=== PATIENT | female | born 1960 | race Caucasian/White ===

== ENCOUNTER 2018-12-07 08:33 | Observation (INO) ==
[2018-12-07] MEDS ORDERED: Aspirin 81 MG TAB.CHEW PO ONE (08:50)
--- NOTE | 2018-12-07 09:22 | Emergency Department Note ---
Disposition Clinical Impression: AMENA (acute kidney injury), Dehydration, Elevated troponin, Elevated d-dimer Disposition: Admitted As Inpatient Condition: Fair Time of Disposition: 12:30 General Adult HPI - General Chief complaint: ED Shortness of Breath/Dyspnea Stated complaint: N/V/D JENNIFFER Time Seen by Provider: 12/07/18 08:41 Source: patient Limitations: no limitations Nursing Notes Reviewed: Yes Vital Signs Reviewed: Yes - History of Present Illness Pain Scale: 0 - Related Data Home Medications Medication Instructions Recorded Confirmed Atorvastatin [Lipitor] 0 mg PO HS 12/07/18 12/07/18 Carvedilol [Coreg] 6.25 mg PO BIDWM 12/07/18 12/07/18 Furosemide [Lasix] 20 mg PO DAILY 12/07/18 12/07/18 NIFEdipine XL (24 HR) [Procardia 60 mg PO DAILY 12/07/18 12/07/18 XL] Potassium Chloride [K-Tab ER] 20 meq PO DAILY 12/07/18 12/07/18 Quinapril HCl [Accupril] 20 mg PO BID 12/07/18 12/07/18 Zolpidem [Ambien] 10 mg PO HS 12/07/18 12/07/18 Allergies Allergy/AdvReac Type Severity Reaction Status Date / Time Penicillins Allergy "do not Verified 12/07/18 08:40 remember, when I was a kid" Sulfa (Sulfonamide Allergy Hives Verified 12/07/18 08:40 Antibiotics) adhesive tape AdvReac "takes my Verified 12/07/18 08:40 skin off" Past Medical History - Past Medical History Medical history: Reports: CHF, hypertension, kidney stones Psychiatric history: Reports: no psych history - Social History Smoking Status: Former smoker Smokeless Tobacco Status: No Alcohol use: Reports: none Drug use: Reports: none Physical Exam - General Limitations: no limitations General appearance: alert, in no apparent distress Course Vital Signs Temperature 97.7 F 12/07/18 08:37 Pulse Rate 73 12/07/18 08:37 Respiratory Rate 20 12/07/18 08:37 Blood Pressure 174/69 12/07/18 08:37 O2 Sat by Pulse Oximetry 98 12/07/18 08:37 Temperature 98.2 F 12/07/18 12:43 Pulse Rate 60 12/07/18 12:43 Respiratory Rate 18 12/07/18 12:43 Blood Pressure 116/56 12/07/18 12:43 O2 Sat by Pulse Oximetry 94 12/07/18 12:43 Oxygen Delivery Oxygen Delivery Room Air Medical Decision Making - MDM Narrative Medical decision making narrative: Chest X-Ray 12/07/18 08:51 IMPRESSION: 1. Mildly enlarged cardiac silhouette. 2. Otherwise, no convincing acute cardiopulmonary abnormality. D/ / Franky Mckeon MD / Franky Mckeon MD Interpreting Provider: Franky Mckeon MD 0922 hrs.: No signs of acute failure on CXR but that she does have an enlarged heart. 1000 hrs.: Patient does have an AMENA, this is probably from her dehydration from her nausea vomiting and diarrheal illness. Her troponins also elevated she has any chest pain but that may be one of the reasons that this is occurred also. We will bring her in the hospital fluid hydrate her follow her troponin in her creatinine and then determine further disposition when she is in the hospital. She is in agreement with plan. - Lab Data Result diagrams: 12/07/18 09:08 12/07/18 09:08 Lab Results 12/07/18 12/07/18 12/07/18 Range/Units 09:08 09:08 09:08 WBC 7.6 (4.3-11.1) K/mcL RBC 3.68 L (3.82-4.97) M/mcL Hgb 10.2 L (11.5-15.4) g/dL Hct 32.5 L (35.3-44.9) % MCV 88.3 (83.0-100.0) fL MCH 27.7 L (28.0-33.3) pg MCHC 31.4 L (31.6-35.5) g/dL RDW 14.5 (11.5-14.5) % Plt Count 265 (140-400) K/mcL MPV 9.3 L (9.4-12.4) fL Immature Gran % 1.2 (0-4) % Seg Neutrophils % 83.8 % Lymphocytes % 7.9 % Monocytes % 6.5 % Eosinophils % 0.3 % Basophils % 0.3 % Neutrophils # 6.4 (1.6-8.9) K/mcL Lymphocytes # 0.6 (0.6-4.6) K/mcL Monocytes # 0.5 (0.0-1.3) K/mcL Eosinophils # 0.0 (0.0-0.6) K/mcL Basophils # 0.0 (0.0-0.2) K/mcL D-Dimer 1239 H (0-500) ng/mLFEU Sodium 137 (136-145) mEq/L Potassium 3.6 (3.5-5.1) mEq/L Chloride 103 (98-107) mEq/L Carbon Dioxide 24 (23-29) mEq/L BUN 21 H (6-20) mg/dL Creatinine 1.44 H (0.60-1.20) mg/dL Est GFR ( Amer) 45 L (> 60) Est GFR (Non-Af Amer) 37 L (> 60) BUN/Creatinine Ratio 15 (6-26) Glucose 130 H (70-105) mg/dL Calculated Osmolality 289 (280-300) Calcium 8.3 L (8.6-10.3) mg/dL Troponin I 0.04 H* (< 0.04) ng/mL B-Natriuretic Peptide (Less than 100) pg/mL 12/07/18 Range/Units 09:08 WBC (4.3-11.1) K/mcL RBC (3.82-4.97) M/mcL Hgb (11.5-15.4) g/dL Hct (35.3-44.9) % MCV (83.0-100.0) fL MCH (28.0-33.3) pg MCHC (31.6-35.5) g/dL RDW (11.5-14.5) % Plt Count (140-400) K/mcL MPV (9.4-12.4) fL Immature Gran % (0-4) % Seg Neutrophils % % Lymphocytes % % Monocytes % % Eosinophils % % Basophils % % Neutrophils # (1.6-8.9) K/mcL Lymphocytes # (0.6-4.6) K/mcL Monocytes # (0.0-1.3) K/mcL Eosinophils # (0.0-0.6) K/mcL Basophils # (0.0-0.2) K/mcL D-Dimer (0-500) ng/mLFEU Sodium (136-145) mEq/L Potassium (3.5-5.1) mEq/L Chloride (98-107) mEq/L Carbon Dioxide (23-29) mEq/L BUN (6-20) mg/dL Creatinine (0.60-1.20) mg/dL Est GFR ( Amer) (> 60) Est GFR (Non-Af Amer) (> 60) BUN/Creatinine Ratio (6-26) Glucose (70-105) mg/dL Calculated Osmolality (280-300) Calcium (8.6-10.3) mg/dL Troponin I (< 0.04) ng/mL B-Natriuretic Peptide 330 H (Less than 100) pg/mL Attestation Statement - Attestation Attestation: This documentation is done with the assistance of Dragon dictation. Despite efforts made to ensure accuracy, there may be inaccuracies in pathology secretary/transcriptionist or spelling and typographical errors. I examined this patient and my medical decision-making was reviewed with the Resident Physician. I agree with the documented findings, disposition and treatment plan as described except to the extent set forth below. Patient was seen and evaluated by Dr. Damon, I agree with their evaluation and management plan, I supervised care the patient's stay. Patient presents today with a few days of nausea vomiting diarrhea which is now resolved. She says she is dyspneic when she gets up to move about. She says she rebound Lasix before but is not right now. She is on any chest pain shortness abdominal pain. She feels better when she sitting at rest. She says she has billable diaphoretic. And feels very warm. We will order a workup on her picture she is not in CHF and reassess. She is in agreement with plan. I reviewed the residents documentation and agree with the residents assessment and plan of care. I have personally had face to face time with the patient. (Brief History, Brief Exam, and MDM) I personally supervised and was present for the mcintosh/critical portions of the following procedures completed by the resident: EKG was interpreted by the resident under my supervision, I agree with their interpretation.
[2018-12-07 09:27] LABS: Basophils % 0.3 %; Eosinophils % 0.3 %; Hematocrit 32.5 % (35.3-44.9); Hemoglobin 10.2 g/dL (11.5-15.4); Immature Granulocytes % 1.2 % (0-4); Lymphocytes # 0.6 K/mcL (0.6-4.6); Lymphocytes % 7.9 %; Mean Corpuscular HGB Conc 31.4 g/dL (31.6-35.5); Mean Corpuscular Hemoglobin 27.7 pg (28.0-33.3); Mean Corpuscular Volume 88.3 fL (83.0-100.0); Mean Platelet Volume 9.3 fL (9.4-12.4); Monocytes # 0.5 K/mcL (0.0-1.3); Monocytes % 6.5 %; Neutrophils # 6.4 K/mcL (1.6-8.9); Platelet Count 265 K/mcL (140-400); Red Blood Count 3.68 M/mcL (3.82-4.97); Red Cell Distribution Width 14.5 % (11.5-14.5); Segmented Neutrophils % 83.8 %; White Blood Count 7.6 K/mcL (4.3-11.1)
[2018-12-07] MEDS ORDERED: 0.9 % Sodium Chloride 500 ML IVC ONE (09:38)
--- NOTE | 2018-12-07 09:41 | Emergency Department Note ---
Disposition Clinical Impression: AMENA (acute kidney injury), Dehydration, Elevated troponin, Elevated d-dimer Disposition: Admitted As Inpatient Condition: Fair Referrals: Eric Samaniego DO [Primary Care Provider] - Forms: ED Satisfaction Letter Time of Disposition: 11:17 SOB HPI - General Chief Complaint: ED Shortness of Breath/Dyspnea Stated Complaint: N/V/D JENNIFFER Time Seen by Provider: 12/07/18 08:41 Source: patient Limitations: no limitations Nursing Notes Reviewed: Yes Vital Signs Reviewed: Yes - History of Present Illness 58-year-old female presents to the emergency department complaining of difficulty in breathing. Patient does have history of CHF. Said that she has been sick over the last 3-4 days were she has been nauseous and vomiting and also having diarrhea she is here primary care physician who gave her Zofran said she is no longer having nausea vomiting or diarrhea just feels very short of breath. Went to work today and said she was unable to take 4-5 steps without stopping to catch her breath. No history of COPD. Does have history of ROSELYN does use BiPAP at home only at night. Does not have history of emphysema. She said she stopped smoking approximately 20 years ago and did about a quarter pack a day. For only 5 years. She is not complaining of any chest pain. She says she had a hard time catching her breath. Says she has also noticed sweating as well. There is no fevers chills. She does not notice any cough or congestion. She does not believe she is in heart failure at this time. She takes Lasix as needed for swelling says she has normal leg swelling at this time. There is been no long car rides no recent hormone use no history of blood clots no recent cancer history no recent surgery history. - Related Data Home Medications Medication Instructions Recorded Confirmed Atorvastatin [Lipitor] 0 mg PO HS 12/07/18 12/07/18 Carvedilol [Coreg] 6.25 mg PO BIDWM 12/07/18 12/07/18 Furosemide [Lasix] 20 mg PO DAILY 12/07/18 12/07/18 NIFEdipine XL (24 HR) [Procardia 60 mg PO DAILY 12/07/18 12/07/18 XL] Potassium Chloride [K-Tab ER] 20 meq PO DAILY 12/07/18 12/07/18 Quinapril HCl [Accupril] 20 mg PO BID 12/07/18 12/07/18 Zolpidem [Ambien] 10 mg PO HS 12/07/18 12/07/18 Allergies Allergy/AdvReac Type Severity Reaction Status Date / Time Penicillins Allergy "do not Verified 12/07/18 08:40 remember, when I was a kid" Sulfa (Sulfonamide Allergy Hives Verified 12/07/18 08:40 Antibiotics) adhesive tape AdvReac "takes my Verified 12/07/18 08:40 skin off" All systems ED: reviewed and negative except as stated. Review of Systems: As Per HPI Past Medical History - Past Medical History Attestation: Yes The following information was validated with the patient. Source: patient Medical history: Reports: CHF, hypertension, kidney stones Psychiatric history: Reports: no psych history - Social History Smoking Status: Former smoker Smokeless Tobacco Status: No Alcohol use: Reports: none Drug use: Reports: none Physical Exam - General Limitations: no limitations General appearance: alert, in no apparent distress - Head Head exam: atraumatic, normocephalic, normal inspection - Eye Eye exam: Present: normal appearance, PERRL, EOMI - ENT ENT exam: normal exam, normal oropharynx, mucous membranes moist - Neck Neck exam: Present: normal inspection, full ROM, trachea midline - Chest Chest inspection: Present: normal inspection, symmetric chest wall rise - Respiratory Respiratory exam: Present: normal lung sounds bilaterally. Absent: respiratory distress, wheezes, stridor, accessory muscle use - Cardiovascular Cardiovascular exam: Present: regular rate, normal rhythm, normal heart sounds - Abdominal Exam Abdominal exam: Present: soft, Non-Tender, normal bowel sounds. Absent: tenderness, distention, guarding, rebound, rigidity - Extremities Exam Extremities exam: Present: normal inspection, full ROM, pedal edema (1+ bilaterally). Absent: tenderness - Back Exam Back exam: Present: normal inspection, full ROM. Absent: tenderness, CVA tenderness (R), CVA tenderness (L) - Neurological Exam Neurological exam: Present: alert, oriented X3 - Skin Skin exam: Present: warm, dry, intact, normal color Course Course Narrative: We have basic labs including CBC BMP BNP, troponin, d-dimer as well as chest x- ray and EKG per we will give patient IV fluids was the chest x-ray comes back not showing fluid overload. We will start with 500 mL as patient does seem to be dehydrated on exam. Vital Signs Temperature 97.7 F 12/07/18 08:37 Pulse Rate 73 12/07/18 08:37 Respiratory Rate 20 12/07/18 08:37 Blood Pressure 174/69 12/07/18 08:37 O2 Sat by Pulse Oximetry 98 12/07/18 08:37 Temperature 97.7 F 12/07/18 08:37 Pulse Rate 59 12/07/18 10:21 Respiratory Rate 24 12/07/18 10:21 Blood Pressure 117/69 12/07/18 10:21 O2 Sat by Pulse Oximetry 94 12/07/18 09:56 Oxygen Delivery Oxygen Delivery Room Air Shortness of Breath/Dyspnea - MDM Narrative Medical decision making narrative: 50-year-old female presented to the emergency department shortness of breath. She was diaphoretic on exam. It was worry about ACS. Did give patient full dose aspirin. Troponin came back at 0.04 the patient's creatinine is newly elevated probably secondary to AK I secondary to dehydration due to the recent viral illness that she had. No longer vomiting. Patient did receive 500 mL of IV fluids his chest x-ray did not show any signs of heart failure or pulmonary edema. Wanted to lightly fluid resuscitate the patient. Patient's d-dimer also came back elevated. Due to the worsening kidney function did not want to do CT angiogram of the chest so chose V/Q scan. That is still pending at this time and the hospitalist will follow-up on this. Spoke with Dr. Aguilar who agreed to admit the patient to their service. Patient admitted in stable condition agrees with the plan. Chest X-Ray 12/07/18 08:51 IMPRESSION: 1. Mildly enlarged cardiac silhouette. 2. Otherwise, no convincing acute cardiopulmonary abnormality. D/ / Franky Mckeon MD / Franky Mckeon MD Interpreting Provider: Franky Mckeon MD - Medical Records Medical records reviewed: Yes I reviewed the patient's medical records. - Lab Data Lab results reviewed: Yes I reviewed the patient's lab results. Result diagrams: 12/07/18 09:08 12/07/18 09:08 Lab Results 12/07/18 12/07/18 12/07/18 Range/Units 09:08 09:08 09:08 WBC 7.6 (4.3-11.1) K/mcL RBC 3.68 L (3.82-4.97) M/mcL Hgb 10.2 L (11.5-15.4) g/dL Hct 32.5 L (35.3-44.9) % MCV 88.3 (83.0-100.0) fL MCH 27.7 L (28.0-33.3) pg MCHC 31.4 L (31.6-35.5) g/dL RDW 14.5 (11.5-14.5) % Plt Count 265 (140-400) K/mcL MPV 9.3 L (9.4-12.4) fL Immature Gran % 1.2 (0-4) % Seg Neutrophils % 83.8 % Lymphocytes % 7.9 % Monocytes % 6.5 % Eosinophils % 0.3 % Basophils % 0.3 % Neutrophils # 6.4 (1.6-8.9) K/mcL Lymphocytes # 0.6 (0.6-4.6) K/mcL Monocytes # 0.5 (0.0-1.3) K/mcL Eosinophils # 0.0 (0.0-0.6) K/mcL Basophils # 0.0 (0.0-0.2) K/mcL D-Dimer 1239 H (0-500) ng/mLFEU Sodium 137 (136-145) mEq/L Potassium 3.6 (3.5-5.1) mEq/L Chloride 103 (98-107) mEq/L Carbon Dioxide 24 (23-29) mEq/L BUN 21 H (6-20) mg/dL Creatinine 1.44 H (0.60-1.20) mg/dL Est GFR ( Amer) 45 L (> 60) Est GFR (Non-Af Amer) 37 L (> 60) BUN/Creatinine Ratio 15 (6-26) Glucose 130 H (70-105) mg/dL Calculated Osmolality 289 (280-300) Calcium 8.3 L (8.6-10.3) mg/dL Troponin I 0.04 H* (< 0.04) ng/mL B-Natriuretic Peptide (Less than 100) pg/mL 12/07/18 Range/Units 09:08 WBC (4.3-11.1) K/mcL RBC (3.82-4.97) M/mcL Hgb (11.5-15.4) g/dL Hct (35.3-44.9) % MCV (83.0-100.0) fL MCH (28.0-33.3) pg MCHC (31.6-35.5) g/dL RDW (11.5-14.5) % Plt Count (140-400) K/mcL MPV (9.4-12.4) fL Immature Gran % (0-4) % Seg Neutrophils % % Lymphocytes % % Monocytes % % Eosinophils % % Basophils % % Neutrophils # (1.6-8.9) K/mcL Lymphocytes # (0.6-4.6) K/mcL Monocytes # (0.0-1.3) K/mcL Eosinophils # (0.0-0.6) K/mcL Basophils # (0.0-0.2) K/mcL D-Dimer (0-500) ng/mLFEU Sodium (136-145) mEq/L Potassium (3.5-5.1) mEq/L Chloride (98-107) mEq/L Carbon Dioxide (23-29) mEq/L BUN (6-20) mg/dL Creatinine (0.60-1.20) mg/dL Est GFR ( Amer) (> 60) Est GFR (Non-Af Amer) (> 60) BUN/Creatinine Ratio (6-26) Glucose (70-105) mg/dL Calculated Osmolality (280-300) Calcium (8.6-10.3) mg/dL Troponin I (< 0.04) ng/mL B-Natriuretic Peptide 330 H (Less than 100) pg/mL - Radiology Data Radiology results reviewed: Yes I reviewed the patient's radiology results. - EKG Data EKG attestation: Yes I reviewed and interpreted this EKG. EKG results narrative: EKG done at 0 850 review myself and attending shows sinus rhythm at a rate of 71, [place] able 193, QRS 181, QTC 518. There is no acute ST changes no acute T-wave changes no other signs of ischemia. There is a left bundle branch block no other blocks no hypertrophy or heart strain. No WPW/Brugada/HOCM. There is no signs of scarBarbosa criteria. EKG unchanged when compared with old EKG done 12/08/13
[2018-12-07 09:57] LABS: Calcium 8.3 mg/dL (8.6-10.3); Potassium 3.6 mEq/L (3.5-5.1); Troponin I 0.04 ng/mL (< 0.04)
--- NOTE | 2018-12-07 16:33 | Electrocardiograph Report ---
[place] [id number] Test Date: 2018-12-07 Pat Name: Janet Fulton Department: [id number] Room: 2A26 Gender: F Professional Engineer: : 1960 Requested By: Amos Damon Order Number: [id number] Reading MD: Adolph Rosas Measurements Intervals [place] Rate: 71 P: 42 NH: 193 QRS: -3 QRSD: 181 T: 76 QT: 476 QTc: 518 Interpretive Statements Sinus rhythm Left bundle branch block Electronically Signed On 12-07-2018 16:31:53 EDT by Adolph Rosas
--- NOTE | 2018-12-07 16:56 | Internal Med History&Physical ---
Date of Encounter: 12/07/18 Time of Encounter: 16:56 Internal Medicine - H&P: HPI Chief complaint: SOB History of present illness: 58-year-old female morbidly obese patient with past medical history of hypertension, hyperlipidemia and kidney stones who presented to the ER With generalized weakness and difficulty breathing. The patient has history of 4 days of persistent nausea and vomiting associated with diarrhea, the patient stated that all of her symptoms resolved she started feeling very tired and short of breath with exertion. The patient is a former smoker quit long time ago, she has no history of COPD, DVT or recent travel. The patient has history of sleep apnea and uses BiPAP at night. The patient denies chest pain, orthopnea, palpitation, paroxysmal nocturnal dyspnea, progressive worsening of lower extremity edema. Reviewing laboratory data revealed elevated BUN/creatinine from her baseline reported about 1 year ago, the patient denies history of chronic kidney disease. ER staff were concern was raised of possible minimal artery embolism, however giving the patient current creatinine clearance , a VQ scan was ordered and bending, the patient will be admitted for further evaluation and management of acute kidney injury and to rule out pulmonary embolism. Past Med Surg Social Fam HX - Past Medical History Medical history: CHF, hyperlipidemia, hypertension, kidney stones Psychiatric history: depression - Past Surgical History Surgical History: appendectomy, hysterectomy, knee replacement Additional surgical history: left knee 2013. lithotripsy. hysterectomy 2018 - Social History Smoking Status: Former smoker Smokeless Tobacco Status: No Alcohol use: none Drug use: none Internal Medicine - H&P: Meds Carvedilol [Coreg] 6.25 mg PO BIDWM 12/07/18 [History] Escitalopram [Lexapro] 20 mg PO QAM 12/07/18 [History] Furosemide [Lasix] 20 mg PO QAM 12/07/18 [History] NIFEdipine XL (24 HR) [Procardia XL] 60 mg PO QAM 12/07/18 [History] Quinapril HCl [Accupril] 20 mg PO BID 12/07/18 [History] Zolpidem [Ambien] 10 mg PO HS 12/07/18 [History] Atorvastatin [Lipitor] 40 mg PO QAM 12/08/18 [History] Meloxicam 15 mg PO QAM 12/08/18 [History] Ondansetron HCl 8 mg PO Q8H PRN 12/08/18 [History] Potassium Chloride [Klor-Con 10] 10 meq PO QAM 12/08/18 [History] Ferrous Sulfate 325 mg PO BIDWM 30 Days #60 tablet 12/09/18 [Rx] Allergy/AdvReac Type Severity Reaction Status Date / Time Penicillins Allergy "do not Verified 12/13/18 13:28 remember, when I was a kid" Sulfa (Sulfonamide Allergy Hives Verified 12/13/18 13:28 Antibiotics) adhesive tape AdvReac "takes my Verified 12/13/18 13:28 skin off" All Systems PM: A 10-system review of systems was performed and is negative for pertinent findings except as documented above in the HPI. - Constitutional Vitals: Temp Pulse Resp BP Pulse Ox 98.4 F 61 16 127/56 95 12/07/18 16:19 12/07/18 16:19 12/07/18 16:19 12/07/18 16:19 12/07/18 16:19 General appearance: Present: A&O X 3 Exam: ` - Head Head exam: Present: atraumatic, normocephalic - Neck Neck exam general surgery: Present: supple, trachea midline. Absent: lymphadenopathy - Respiratory Respiratory exam: Present: CTAB. Absent: accessory muscle use, rales, rhonchi, wheezes - Cardiovascular Cardiovascular exam: Present: RRR, +S1, +S2. Absent: diastolic murmur, gallop, rubs, systolic murmur - GI/Abdominal GI/Abdominal exam: Present: normal bowel sounds, soft, no peritoneal signs. Absent: distended, tenderness - Extremities Exam Extremities exam: Present: warm, radial pulses palpable and symmetrical. Absent: calf tenderness, cyanotic, pedal edema Internal Med - H&P Results - Labs CBC & Chem 7: 12/08/18 00:58 12/09/18 06:36 Labs: Short CBC 12/07/18 Range/Units 09:08 WBC 7.6 (4.3-11.1) K/mcL Hgb 10.2 L (11.5-15.4) g/dL Hct 32.5 L (35.3-44.9) % Plt Count 265 (140-400) K/mcL Neutrophils # 6.4 (1.6-8.9) K/mcL BMP 06/27/19 09:08 Sodium 137 Potassium 3.6 Chloride 103 Carbon Dioxide 24 BUN 21 H Creatinine 1.44 H Glucose 130 H Calcium 8.3 L Cardiac Enzymes 12/07/18 Range/Units 09:08 Troponin I 0.04 H* (< 0.04) ng/mL - Impressions ITS Impressions Chest X-Ray 12/07/18 08:51 IMPRESSION: 1. Mildly enlarged cardiac silhouette. 2. Otherwise, no convincing acute cardiopulmonary abnormality. D/ / Franky Mckeon MD / Franky Mckeon MD Interpreting Provider: Franky Mckeon MD Pulmonary Perfusion Imaging 12/07/18 10:45 IMPRESSION: Very low probability for pulmonary embolus. D/ / Sherif Pearce MD / Sherif Pearce MD Interpreting Provider: Sherif Pearce MD - Assessment and Plan (1) AMENA (acute kidney injury) Status: Resolved Assessment and plan: Most likely secondary to prerenal etiology due to volume depletion due to reported recent nausea, vomiting and diarrhea in this setting off ACEIs as well as Lasix. the patient has history of kidney stone, however she denies flank pain, hallie hematuria or passing any stone recently. We'll restart IV hydration with isotonic saline, continue to monitor renal bilateral, obtain urine analysis, strict I and O's, renal dosing of medication as but current EGFR. Given that lost reported kidney function was more than1 year ago , chronic component cannot be excluded, we would obtain protein creatinine ratio. (2) Elevated d-dimer Status: Acute Assessment and plan: The patient is scheduled for VQ scan, clinical presentation is not consistent with possible pulmonary embolism, will follow on the results and manage accordingly. The patient reported history of congestive heart failure, she denies recent progressive worsening of lower extremity edema, We will obtain echocardiogram. (3) Hypertension Status: Chronic Assessment and plan: we will continue home medication except for Lasix as well as ACEIs for now, repeat renal panel in a.m. and resume meds when creatinine at baseline. Qualifiers: Hypertension type: unspecified Qualified Code(s): I10 - Essential (primary) hypertension (4) Hyperlipidemia Status: Chronic Assessment and plan: we'll continue home statin and obtain fasting lipid profile Qualifiers: Hyperlipidemia type: unspecified Qualified Code(s): E78.5 - Hyperlipidemia, unspecified (5) Morbid obesity Status: Chronic Assessment and plan: The patient was counseled about the importance of adopting healthy lifestyle and the increased risk for developing or worsening of many medical problems, including insulin resistance and type 2 diabetes mellitus, uncontrolled hypertension, cardiovascular disease, stroke, gallbladder disease, and osteoarthritis. the patient will be pursuing consultation for possible bariatric surgery. (6) Obstructive sleep apnea Status: Chronic Assessment and plan: we will resume BiPAP at night - Time Spent With Patient Total time spent is greater than 50% in coordination of care (as documented) at patient's floor/unit and/or counseling patient:
[2018-12-07] MEDS ORDERED: Ondansetron 4 MG/2 ML VIAL IVP PRN (18:51)
[2018-12-07] MEDS ORDERED: *HR* HYDROcodone/Acet 5/325 mg TABLET PO PRN (18:51)
[2018-12-07] MEDS ORDERED: Naloxone 0.4 MG/ML INJ IVP PRN (18:51)
[2018-12-07] MEDS ORDERED: Acetaminophen 325 MG TABLET PO PRN (18:51)
[2018-12-07] MEDS: 0.9 % Sodium Chloride 1,000 ML IVC SCH (20:03)
[2018-12-07] MEDS ORDERED: Perflutren Lipid Microsphere 1.3 ML in 0.9 % Sodium Chloride 8.7 ML IVP ONE (20:20)
[2018-12-08 01:38] LABS: INR 1.3; Prothrombin Time 14.2 Seconds (9.4-12.1)
[2018-12-08 01:41] LABS: Activated Partial Thrombo Time 31.9 Seconds (26.0-36.0)
[2018-12-08 01:45] LABS: Basophils % 0.1 %; Eosinophils % 0.5 %; Hematocrit 29.5 % (35.3-44.9); Hemoglobin 9.4 g/dL (11.5-15.4); Immature Granulocytes % 1.1 % (0-4); Immature Platelets 1.5 % (1.1-6.1); Lymphocytes # 0.8 K/mcL (0.6-4.6); Lymphocytes % 11.1 %; Mean Corpuscular HGB Conc 31.9 g/dL (31.6-35.5); Mean Corpuscular Hemoglobin 27.9 pg (28.0-33.3); Mean Corpuscular Volume 87.5 fL (83.0-100.0); Mean Platelet Volume 9.4 fL (9.4-12.4); Monocytes # 0.6 K/mcL (0.0-1.3); Monocytes % 7.4 %; Neutrophils # 6.1 K/mcL (1.6-8.9); Red Blood Count 3.37 M/mcL (3.82-4.97); Red Cell Distribution Width 14.5 % (11.5-14.5); Segmented Neutrophils % 79.8 %; White Blood Count 7.6 K/mcL (4.3-11.1)
[2018-12-08 01:48] LABS: Albumin 3.2 g/dL (3.5-5.7); Bilirubin,Total 0.6 mg/dL (0.3-1.0); Chol/HDL Ratio 9.5 (0-4.9); Globulin 3.1 g/dL (2.4-3.5); Magnesium 2.3 mg/dL (1.6-2.6); Potassium 3.8 mEq/L (3.5-5.1); Total Protein 6.3 g/dL (6.4-8.9)
[2018-12-08 02:20] LABS: Platelet Count 296 K/mcL (140-400)
[2018-12-08] MEDS: 0.9 % Sodium Chloride 1,000 ML IVC SCH ×3 (04:15→23:59)
[2018-12-08] MEDS: NIFEdipine XL (24 HR) 60 MG TAB.ER.24 PO SCH (08:19)
[2018-12-08 08:33] LABS: Bilirubin,Urine Negative (Negative); Blood,Urine Negative (Negative); Clarity,Urine Clear (Clear); Glucose,Urine (UA) Normal (Normal); Ketones,Urine Negative (Negative); Leukocyte Esterase,Urine Moderate (Negative); Nitrite,Urine Negative (Negative); Protein,Urine Trace mg/dL (Neg-Trace); Urobilinogen,Urine Normal (Normal)
[2018-12-08 08:35] LABS: Color,Urine Yellow (Yellow); Protein/Creatinine Ratio,Urine 0.37 mg/mg (0.00-0.20)
[2018-12-08 08:40] LABS: Bacteria,Urine None Seen per hpf (None-Few); Hyaline Casts,Urine None Seen per lpf (None-Few); Squamous Epithelial Cell,Urine Many per lpf (None-Few); WBC,Urine 50-100 per hpf (0-3)
[2018-12-08 09:03] LABS: Estimated Average Glucose 148 mg/dl
[2018-12-08 09:20] LABS: % Iron Saturation 11 % (15-50); Iron 24 mcg/dL (50-170); Transferrin 160 mg/dL (203-362)
[2018-12-08 09:47] LABS: Folate 10.9 ng/mL (3.0-16.0)
--- NOTE | 2018-12-08 09:49 | Electrocardiograph Report ---
[place] [id number] Test Date: 2018-12-08 Pat Name: Janet Fulton Department: 112 Room: 2A26 Gender: F Engineer Fishing Vessel: ROSENDO : 1960 Requested By: Alma Delia Mckeon Order Number: [id number] Reading MD: Torito Keenan Measurements Intervals [place] Rate: 61 P: 57 MS: 213 QRS: 1 QRSD: 174 T: 33 QT: 503 QTc: 507 Interpretive Statements SINUS RHYTHM WITH FIRST DEGREE AV BLOCK LEFT BUNDLE BRANCH BLOCK Electronically Signed On 12-08-2018 9:48:06 EDT by Torito Keenan
[2018-12-08] MEDS ORDERED: *HR* Dextrose 50 % in Water (Syg) 50 ML SYRINGE IVP PRN (10:40)
[2018-12-08] MEDS ORDERED: Dextrose Gel 15 GM/37.5 ML TUBE PO PRN ×2 (10:40)
[2018-12-08] MEDS ORDERED: D5% in Water 1,000 ML IVC PRN (10:40)
--- NOTE | 2018-12-08 11:37 | Internal Med Progress Note ---
Hospitalist Progress Note - Encounter Date of Encounter: 12/08/18 Time of Encounter: 11:34 - Subjective Interval History: I have seen and evaluated the patient on bedside. Patient admitted for dehydration, generalized weakness and acute kidney injury. Patient reports feeling better today, reports feeling stronger. Denies chest pain, shortness of breath. Denies abdominal pain nausea or vomiting. - Exam Vitals: Temp Pulse Resp BP Pulse Ox 97.8 F 60 16 130/65 93 12/08/18 08:06 12/08/18 08:12/08/18 08:06 12/08/18 08:06 12/08/18 08:34 Exam: Vitals: Reviewed. General: Morbidly obese, Alert and oriented 4. In no distress. Skin: Normal color, no rash, no lesions. HEENT: EOM, pupils equal, round and reactive. Cardiovascular: RRR, normal S1 & S2, no rubs, murmurs or gallops. Lungs: CTA b/l, no wheezes or crackles. Abdomen: Obese, soft, non-tender, no rigidity. NABS in all 4 quadrants Extremities: No deformity, no edema or tenderness, no joint swelling or clubbing. Neurological: Normal cognition and motor skills. Rest of the physical exam is non contributory - Assessment and Plan (1) AMENA (acute kidney injury) Current Visit: Yes Status: Acute Assessment and Plan: Possible secondary to dehydration, reported poor oral intake and diarrhea illness about a week ago. Decrease IV fluids to 100 ml/hr, on NS. encourage Oral intake. retro-peritoneal US ordered will reassess kidney function tomorrow morning (2) Elevated d-dimer Current Visit: Yes Status: Acute Assessment and Plan: Unclear etiology. VQ scan low probability for pulmonary embolism. Venous duplex of the lower extremity ordered to rule out DVT. (3) Hypertension Current Visit: Yes Status: Chronic Assessment and Plan: Blood pressures well controlled on nifedipine 60 mg by mouth daily, carvedilol 6.25 mg by mouth twice a day. (4) Hyperlipidemia Current Visit: Yes Status: Chronic Assessment and Plan: Patient is on atorvastatin 40 mg daily at bedtime. (5) Morbid obesity Current Visit: Yes Status: Chronic (6) Obstructive sleep apnea Current Visit: Yes Status: Chronic Assessment and Plan: Nocturnal BiPAP (7) Diabetes Current Visit: Yes Status: Chronic Assessment and Plan: A1c of 6.8%. Started on lispro low-dose sliding scale before meals. Carbs controlled diet. DVT Prophylaxis: Heparin subcutaneous. - Summary of Assessment and Plan Summary of Assessment and Plan: Patient to remain in the hospital due to acute kidney injury on IV hydration. - Time Spent with Patient Total time spent is greater than 50% in coordination of care (as documented) at patient's floor/unit and/or counseling patient: Greater than 35 minutes (40) Plan of Care Discussed with: patient (and the nurse.) Internal Medicine: Result - Labs CBC & Chem 7: 12/08/18 00:58 12/08/18 00:58 Labs: Short CBC 12/08/18 Range/Units 00:58 WBC 7.6 (4.3-11.1) K/mcL Hgb 9.4 L (11.5-15.4) g/dL Hct 29.5 L (35.3-44.9) % Plt Count 296 (140-400) K/mcL Neutrophils # 6.1 (1.6-8.9) K/mcL BMP 12/08/18 00:58 Sodium 138 Potassium 3.8 Chloride 106 Carbon Dioxide 23 BUN 17 Creatinine 1.22 H Glucose 102 Calcium 8.0 L Cardiac Enzymes 12/07/18 12/08/18 Range/Units 19:23 00:58 Troponin I 0.04 H* 0.04 H* (< 0.04) ng/mL Liver Function 12/08/18 Range/Units 00:58 Total Bilirubin 0.6 (0.3-1.0) mg/dL AST 24 (13-39) Units/L ALT 33 (7-52) Units/L Alkaline Phosphatase 145 H (34-104) Units/L Albumin 3.2 L (3.5-5.7) g/dL Urine 12/08/18 Range/Units 08:10 Urine Color Yellow (Yellow) Urine Clarity Clear (Clear) Urine pH 6.0 (5.0-8.0) pH Units Ur Specific [place] 1.020 (1.010-1.025) Urine Protein Trace (Neg-Trace) mg/dL Urine Glucose (UA) Normal (Normal) mg/dL - ABG Interpretation ABG results: PT/INR, D-dimer PT 14.2 Seconds (9.4-12.1) H 12/08/18 00:58 1239 ng/mLFEU (0-500) H 12/07/18 09:08 - Impressions Impressions Pulmonary Perfusion Imaging 12/07/18 10:45 IMPRESSION: Very low probability for pulmonary embolus. D/ / Sherif Pearec MD / Sherif Pearce MD Interpreting Provider: Sherif Pearce MD Echocardiogram 12/07/18 18:57 Impressions: LVEF 50-55%. Mild left ventricular diastolic dysfunction. Normal right ventricular structure and function. No significant valvular dysfunction. No pulmonary hypertension. Left Ventricular Wall Motion: Rest Echo Findings All wall segments showed normal motion. Findings: Study Quality * Technically adequate exam. ECG Findings * Sinus rhythm with BBB. Left Ventricle * LVEF 50-55%. * Normal LV chamber size, wall thickness and systolic function. * Mild left ventricular diastolic dysfunction. * Definity echo contrast was used. * Atypical septal motion consistent with bundle branch block. Right Ventricle * Normal right ventricular structure and function. Left Atrium * Normal left atrial size. Right Atrium * Normal right atrial size. Interatrial Septum * Interatrial septum not well evaluated. * No evidence of PFO by color Doppler. Aortic Valve * Aortic valve not well visualized. * No aortic stenosis. * No aortic regurgitation. Mitral Valve * Normal mitral valve structure. * No mitral stenosis. * Trace mitral regurgitation. Tricuspid Valve * Normal tricuspid valve structure. * No tricuspid stenosis. * Trace tricuspid regurgitation. * Estimated RVSP is 30 mmHg. * Estimated RA pressure is 15 mmHg. * No pulmonary hypertension. Pulmonic Valve * Pulmonic valve is not well visualized. * No pulmonic stenosis. * No pulmonic regurgitation. Aorta * Normally sized aortic root. Pericardium * The pericardium appears normal. IVC * The IVC is dilated. * < 50% respiratory change. Consult Discharge Plan - Plan Referrals: Eric Samaniego DO [Primary Care Provider] - (3) Hypertension Qualifiers: Hypertension type: unspecified Qualified Code(s): I10 - Essential (primary) hypertension (4) Hyperlipidemia Qualifiers: Hyperlipidemia type: unspecified Qualified Code(s): E78.5 - Hyperlipidemia, unspecified (7) Diabetes Qualifiers: Diabetes mellitus type: type 2 Diabetes mellitus snf insulin use: without snf use Diabetes mellitus complication status: without complication Qualified Code(s): E11.9 - Type 2 diabetes mellitus without complications
[2018-12-08] MEDS: Insulin LISPRO 300 UNITS/3 ML VIAL SQ SCH ×2 (13:44→16:52)
[2018-12-08] MEDS: *HR* Heparin 5,000 UNIT/ML VIAL SQ SCH (17:03)
[2018-12-09] MEDS: *HR* Heparin 5,000 UNIT/ML VIAL SQ SCH (05:55)
[2018-12-09 07:41] LABS: BUN/Creatinine Ratio 12 (6-26); Blood Urea Nitrogen 12 mg/dL (6-20); Calcium 7.7 mg/dL (8.6-10.3); Carbon Dioxide 18 mEq/L (23-29); Chloride 105 mEq/L (98-107); Glucose 140 mg/dL (70-105); Osmolality,Calculated 290 (280-300); Phosphorous 3.5 mg/dL (2.7-4.5); Potassium 3.9 mEq/L (3.5-5.1); Sodium 139 mEq/L (136-145); eGFR For African Americans > 60 (> 60); eGFR For Non-African Americans 56 (> 60)
[2018-12-09 07:51] VITALS: BP 116/67
[2018-12-09] MEDS: Insulin LISPRO 300 UNITS/3 ML VIAL SQ SCH (08:42)
[2018-12-09] MEDS: NIFEdipine XL (24 HR) 60 MG TAB.ER.24 PO SCH (08:46)
--- NOTE | 2018-12-09 10:05 | Discharge Summary ---
Orders not resulted at time of discharge: Pending orders 12/08/18 05:22 UA w. reflex microscopic [Urinalysis reflex Microscopic] [URIN] Routine 12/08/18 08:10 Culture,Urine [RM] Routine Date of Encounter: 12/09/18 Time of Encounter: 10:03 - Discharge Diagnosis (1) AMENA (acute kidney injury) Priority: Primary Status: Resolved (2) Elevated d-dimer Priority: Secondary Status: Acute (3) Hypertension Priority: Secondary Status: Chronic Qualifiers: Hypertension type: unspecified Qualified Code(s): I10 - Essential (primary) hypertension (4) Hyperlipidemia Priority: Secondary Status: Chronic Qualifiers: Hyperlipidemia type: unspecified Qualified Code(s): E78.5 - Hyperlipidemia, unspecified (5) Morbid obesity Priority: Secondary Status: Chronic (6) Obstructive sleep apnea Priority: Secondary Status: Chronic (7) Diabetes Priority: Secondary Status: Chronic Qualifiers: Diabetes mellitus type: type 2 Diabetes mellitus residential insulin use: without residential use Diabetes mellitus complication status: without complication Qualified Code(s): E11.9 - Type 2 diabetes mellitus without complications Hospital course: Ms. Fulton is a 58 year old female past medical history of hypertension, hyperlipidemia and kidney stones who presented to the ER With generalized weakness and difficulty breathing. The patient has history of 4 days of persistent nausea and vomiting associated with diarrhea, about a week prior to presenting to the hospital, but after her symptoms resolved she started feeling generalized weakness. Patient was admitted to the hospital due to dehydration, AMENA, elevated D-Dimer. patient was managed with IV hydration, a VQ scan done: low probability of PE, venous dupplex: no DVT. Patient's acute symptoms have resolved and the patient is hemodinamically stable to be discharged home. - Time Spent with Patient Total time spent providing and/or coordinating discharge services: Time spent: Greater than 30 minutes (35) - Discharge Medications Prescriptions: New Ferrous Sulfate 325 mg PO BIDWM 30 Days #60 tablet Continued Zolpidem [Ambien] 10 mg PO HS Furosemide [Lasix] 20 mg PO QAM Quinapril HCl [Accupril] 20 mg PO BID Carvedilol [Coreg] 6.25 mg PO BIDWM NIFEdipine XL (24 HR) [Procardia XL] 60 mg PO QAM Escitalopram [Lexapro] 20 mg PO QAM Atorvastatin [Lipitor] 40 mg PO QAM Meloxicam 15 mg PO QAM Ondansetron HCl 8 mg PO Q8H PRN PRN Reason: Nausea Potassium Chloride [Klor-Con 10] 10 meq PO QAM Home Medications: Carvedilol [Coreg] 6.25 mg PO BIDWM 12/07/18 [History] Escitalopram [Lexapro] 20 mg PO QAM 12/07/18 [History] Furosemide [Lasix] 20 mg PO QAM 12/07/18 [History] NIFEdipine XL (24 HR) [Procardia XL] 60 mg PO QAM 12/07/18 [History] Quinapril HCl [Accupril] 20 mg PO BID 12/07/18 [History] Zolpidem [Ambien] 10 mg PO HS 12/07/18 [History] Atorvastatin [Lipitor] 40 mg PO QAM 12/08/18 [History] Meloxicam 15 mg PO QAM 12/08/18 [History] Ondansetron HCl 8 mg PO Q8H PRN 12/08/18 [History] Potassium Chloride [Klor-Con 10] 10 meq PO QAM 12/08/18 [History] Ferrous Sulfate 325 mg PO BIDWM 30 Days #60 tablet 12/09/18 [Rx] Allergies/Adverse Reactions: Allergy/AdvReac Type Severity Reaction Status Date / Time Penicillins Allergy "do not Verified 12/08/18 14:30 remember, when I was a kid" Sulfa (Sulfonamide Allergy Hives Verified 12/08/18 14:30 Antibiotics) adhesive tape AdvReac "takes my Verified 12/08/18 14:30 skin off" Date of admission: 12/07/18 11:19 Primary care physician: Ernie Samaniego, - Constitutional Vitals: Temp Pulse Resp BP Pulse Ox 97.9 F 63 16 116/67 92 12/09/18 07:50 12/09/18 07:50 12/09/18 07:50 12/09/18 07:50 12/09/18 07:50 General appearance: Present: A&O X 3 Exam: Vitals: Reviewed. General: Morbidly obese, Alert and oriented 4. In no distress. Cardiovascular: RRR, normal S1 & S2, no rubs, murmurs or gallops. Lungs: CTA b/l, no wheezes or crackles. Abdomen: Obese, soft, non-tender, no rigidity. NABS in all 4 quadrants Extremities: No edema Neurological: No focal neurological deficits Rest of the physical exam is non contributory - Patient Status Disposition: Home, Self-Care Condition: Good Functional capacity at discharge: independent ambulation Overall status at discharge: patient is back to baseline - Discharge Instructions Follow Up With: Eric Samaniego DO [Primary Care Provider] - - Diet and Activity Activity: resume usual activities as tolerated Diet: diabetic diet
== END 2018-12-09 13:40 | disposition home or self-care (01) ==
LOC: 2ANU 08:33 → EMEROOARM 08:33 → SUATTDRO 11:19 → 2ANU 11:50
PROVIDERS: ADMIT Internal Medicine Nephrology; ATTEND Internal Medicine